=== PATIENT | female | born 1945 | race Caucasian/White ===

== ENCOUNTER 2016-06-21 08:58 | Inpatient (IN) ==
[2016-06-21 09:48] LABS: MANUAL DIFF NEEDED? NO
[2016-06-21 09:51] LABS: BASO% 0.8 % (0.0-0.8); EOS# 0.39 X1000 (0.0-0.7); EOS% 3.3 % (0.0-10.0); HEMATOCRIT 39.5 % (37.0-47.0); HEMOGLOBIN 12.7 g/dL (12.0-16.0); IMM GRAN# 0.24 X1000 (0.0-0.04); LYMPH# 2.01 X1000 (1.2-3.4); LYMPH% 17.1 % (20.5-51.1); MCH 30.1 PG (27-31); MCHC 32.2 g/dL (33-37); MCV 93.6 FL (81-99); MONO# 1.15 X1000 (0.11-0.59); MONO% 9.8 % (1.7-9.3); MPV 9.6 FL (7.4-10.4); PLT 273 X1000 (130-400); RBC 4.22 XMIL (4.2-5.4)
--- NOTE | 2016-06-21 10:07 | EKG Report ---
Test Performed on : 06/21/2016 09:42:06 AM Test Reason : emboli Blood Pressure : / mmHG Vent. Rate : 084 BPM Atrial Rate : 084 BPM P-R Int : 192 ms QRS Dur : 086 ms QT Int : 366 ms P-R-T Axes : 078 -03 070 degrees QTc Int : 432 ms Normal sinus rhythm. Nonspecific ST abnormality Abnormal ECG When compared with ECG of 21-JUN-2016 09:41, (Unconfirmed) No significant change was found Unconfirmed Result
[2016-06-21 10:08] LABS: ALBUMIN 3.5 g/dL (3.5-5.0); CALCIUM 8.9 mg/dL (8.8-10.2); POTASSIUM 4.3 mmol/L (3.5-5.1); TOTAL BILIRUBIN 0.2 mg/dL (0.20-1.00); TOTAL PROTEIN 6.4 g/dL (6.3-8.3)
--- NOTE | 2016-06-21 11:43 | Diag Imaging Result Document ---
PROCEDURE NAME: HEAD W/O CONTRAST - 06/21/2016 CT HEAD WITHOUT CONTRAST: A dose-reduction protocol was used. COMPARISON: No comparison exam. FINDINGS: There is no evidence of intracranial hemorrhage, mass effect, midline shift, or hydrocephalus. There is no evidence of infarct, although acute infarcts may not be immediately visible. There is no skull fracture. There is mild paranasal sinus disease noted of ethmoid and sphenoid sinuses. IMPRESSION: No visible acute intracranial abnormality. No evidence of intracranial injury. There is mild paranasal sinus disease noted.
--- NOTE | 2016-06-21 11:47 | Diag Imaging Result Document ---
PROCEDURE NAME: WRIST COMPLETE LEFT - 06/21/2016 LEFT WRIST, 3 VIEWS: FINDINGS: There is a questionable nondisplaced fracture at the dorsal aspect of the distal radial metaphysis. There is no other fracture or dislocation identified. IMPRESSION: Questionable nondisplaced fracture of the distal radius.
[2016-06-21 11:59] LABS: BILIRUBIN URINE 2+ (NEGATIVE); BLOOD URINE NEGATIVE (NEGATIVE); CLARITY CLEAR (CLEAR); COLOR AMBER; GLUCOSE URINE NEGATIVE (NEGATIVE); LEUKOCYTES URINE 2+ (NEGATIVE); NITRITE URINE POSITIVE (NEGATIVE); PH URINE 6.5; PROTEIN URINE 1+(30 mg/dL) mg/dL (NEGATIVE); UROBILINOGEN URINE 1+(1 mg/dL)
[2016-06-21 12:20] LABS: URINE CULTURE PL NEEDED? YES; URINE EPITHELIAL CELLS >10 /HPF (<10); URINE RBC <10 /HPF (<10); URINE SOURCE CLEAN CATCH; URINE WBC 20-40 /HPF (<10)
[2016-06-21] MEDS ORDERED: NS 1,000 ML IV ONE (12:21)
[2016-06-21] MEDS ORDERED: DOPAMINE 800 MG/D5W (PARKWAY ONLY!) 800 MG/250 ML IV.SOLN IV SCH (12:30)
[2016-06-21] MEDS: ROCEPHIN 1 GM/NS 1 GM/50 ML IVPB IV SCH (12:53)
[2016-06-21] MEDS ORDERED: NORCO-5 PO ONE (13:05)
[2016-06-21] MEDS ORDERED: DEMEROL IV ONE (14:19)
--- NOTE | 2016-06-21 15:32 | HISTORY AND PHYSICAL ---
PRIMARY CARE PHYSICIAN: Dr. Kern . CHIEF COMPLAINT: Have a fall outside. Stated that she had been walking her dog , got dizzy, lost balance and fell. HISTORY OF PRESENTING ILLNESS: This is a 71-year-old female who presents to [facility] ER stating that she had a fall outside her home today while she was walking her dog, states she got dizzy, lost her balance and fell hitting her left temporal area on a brick noted to be raised and dark black bruising noted. Also states that she fell onto her left wrist and left knee. When she arrived to the emergency room she was noted to have a blood pressure of 85/72. When they tried to do orthostatics once she got to the standing part it dropped all the way to 43/35. She was given a liter bolus of normal saline and her pressure is now up to 120/62. Wrist x-ray of her left wrist showed a questionable nondisplaced fracture of the distal radius. So she also states that yesterday she was in her home and was walking inside her house, got dizzy and fell. Both incidences she states she never lost consciousness so she is being admitted for further evaluation and treatment. PAST MEDICAL HISTORY: Coronary artery disease, hypertension, COPD and diabetes type 2. PAST SURGICAL HISTORY: Appendectomy, a carotid endarterectomy, cholecystectomy and a hysterectomy. FAMILY HISTORY: Noncontributory. SOCIAL HISTORY: She currently lives alone. States she quit smoking approximately 4 months ago. Smoked a pack and a half a day for the past 60 years up until 4 months ago. Denies any alcohol or illicit drug use. ALLERGIES: She has no known drug allergies. HOME MEDICATIONS: We will obtain a current list of her home medications and she states she is on multiple antihypertensive, course those will be held at this time but we will verify those and restart what is appropriate to restart at this time. LABORATORY DATA: Showed a white blood cell count of 11.74, hemoglobin 12.7, hematocrit 39.5, platelets 273,000. Sodium of 136, potassium 4.3, chloride 98, CO2 24, BUN of 18, creatinine 1, glucose 162, creatine kinase of 25 with a troponin of less than 0.010. Urinalysis showed positive nitrites, 2+ white blood cells and 4+ bacteria. Head CT showed no visible acute intracranial abnormality. No evidence of an intracranial injury. EKG showed normal sinus rhythm at 84. REVIEW OF SYSTEMS: She denied any fever, chills, blurred vision. She was positive for some dizziness. She denied any chest pain, coughing, shortness of breath, abdominal pain, constipation, diarrhea, burning or hurting with urination. She is positive for left wrist pain with movement. PHYSICAL EXAMINATION: VITAL SIGNS: On arrival she had a temperature of 97.2 degrees, pulse 88, respirations 22, blood pressure was 85/72, saturating 96% on room air. They obtained orthostatics, lying was 77/52, sitting was 85/62 and standing was 43/35. Currently she is at 120/62. GENERAL: This is a 71-year-old morbidly obese female who is lying in the bed, answers all questions appropriately. HEENT: Normocephalic and atraumatic. Pupils are equal, round, reactive to light. The patient is noted to have her left temporal area has a knot that is raised and dark black in color from where she states she hit her head on the brick outside when she fell. Pupils are equal, round, reactive to light. Extraocular movements are intact. Oropharynx and nares are clear. NECK: Supple. LUNGS: Clear to auscultation bilaterally with equal lung expansion and chest wall movement. HEART: With regular rate and rhythm. No murmurs, rubs, or gallops. ABDOMEN: Soft, nontender, nondistended. Bowel sounds are present x4 quadrants. EXTREMITIES: There is no clubbing, cyanosis, or edema. The patient is noted to have a left wrist immobilizer in place. NEUROLOGICAL: The cranial nerves 2-12 appear grossly intact. ASSESSMENT: 1. Fall. 2. Syncope. 3. Urinary tract infection. 4. Hypotension. 5. A left wrist fracture. PLAN: Initially we were thinking she would go to ICU but her fluid resuscitation has improved her blood pressure so she can now come to the medical floor. We will place her on telemetry, bedrest with bedside commode privileges, give her Demerol 25 mg IV q.4 hours p.r.n., normal saline at 100 mL an hour. Will continue her Rocephin 1 gram IV q.24. Urine culture is pending. We will recheck a CBC, CMP in the a.m. We will verify her home medications and of course hold any antihypertensives at this time. The patient does not have a living will at this time and is a full code. Dictated by ANTONELLA Toscano for Konrad Atkins MD cc: MD Konrad Wesley MD pt examined, unclear why pt is so orthostatic although may be related to her numerous medications; gabi adjust accordingly and follow closely will continue hydration and monitor for any volume overload APENOT MTDD
[2016-06-21] MEDS ORDERED: DEMEROL IV PRN (15:57)
[2016-06-21] MEDS ORDERED: NS 500 ML IV ONE (15:58)
[2016-06-21] MEDS: NS 1,000 ML IV SCH (16:34)
[2016-06-21] MEDS: HUMULIN R (PARKWAY) SUBQ SCH ×2 (17:24→21:14)
[2016-06-21] MEDS: ZOFRAN IV PRN (21:00)
[2016-06-21] MEDS: DILAUDID IV PRN (23:00)
[2016-06-22] MEDS: DILAUDID IV PRN ×4 (03:12→20:06)
[2016-06-22] MEDS: NS 1,000 ML IV SCH ×3 (03:12→22:03)
[2016-06-22 05:23] LABS: MANUAL DIFF NEEDED? NO
[2016-06-22 05:38] LABS: BASO% 0.2 % (0.0-0.8); EOS# 0.25 X1000 (0.0-0.7); HEMATOCRIT 39.8 % (37.0-47.0); HEMOGLOBIN 12.5 g/dL (12.0-16.0); IMM GRAN# 0.09 X1000 (0.0-0.04); IMM GRAN% 1.1 % (0.0-0.5); LYMPH# 1.85 X1000 (1.2-3.4); LYMPH% 22.3 % (20.5-51.1); MCH 29.8 PG (27-31); MCHC 31.4 g/dL (33-37); MCV 94.8 FL (81-99); MONO# 0.87 X1000 (0.11-0.59); MONO% 10.5 % (1.7-9.3); MPV 9.6 FL (7.4-10.4); NEUT% 62.9 % (42.2-75.2); PLT 232 X1000 (130-400)
[2016-06-22 06:01] LABS: HEMOGLOBIN A1C 6.4 % (4.8-6.0)
[2016-06-22 06:05] LABS: AGAP 13; ALBUMIN 3.4 g/dL (3.5-5.0); ALKALINE PHOSPHATASE 105 U/L (32-104); BUN 11 mg/dL (8-22); CALCIUM 8.7 mg/dL (8.8-10.2); CHLORIDE 100 mmol/L (98-107); COSMO 278; GOT 10 U/L (10-30); GPT 12 U/L (10-36); MAGNESIUM 1.9 mg/dL (1.5-2.7); POTASSIUM 4.4 mmol/L (3.5-5.1); SODIUM 138 mmol/L (136-145); TCO2 25 mmol/L (25-35); TOTAL PROTEIN 6.3 g/dL (6.3-8.3)
[2016-06-22] MEDS: HUMULIN R (PARKWAY) SUBQ SCH ×4 (06:38→22:03)
[2016-06-22] MEDS ORDERED: NITROGLYCERIN SL PRN (11:46)
[2016-06-22] MEDS ORDERED: NORCO-5 PO PRN (11:46)
[2016-06-22] MEDS ORDERED: MIRALAX PO PRN (11:46)
[2016-06-22] MEDS: GLUCOPHAGE PO SCH ×2 (12:05→17:05)
[2016-06-22] MEDS: ROCEPHIN 1 GM/NS 1 GM/50 ML IVPB IV SCH (12:06)
[2016-06-22] MEDS: CARDIZEM CD PO SCH (12:16)
[2016-06-22] MEDS: NEURONTIN PO SCH ×2 (12:16→17:05)
--- NOTE | 2016-06-22 15:40 | PROGRESS NOTE ---
DATE: 06/22/2016 SUBJECTIVE: Patient does not feel good today. She just feels worse than she did yesterday. OBJECTIVE: Vital signs: Blood pressure 118/84, heart rate 94, respiratory 18, temperature 98.4 degrees. Her orthostatics have improved somewhat, heart rate maintained in the 90s, supine blood pressure 101 systolic up to 117 when she was standing, 97% on room air. Cardiovascular: Regular rate and rhythm. Pulmonary: Bilateral breath sounds. Clear to auscultation. GI: Soft, nontender, nondistended. Bowel sounds are positive. Extremities: No clubbing or cyanosis. Lymphatics: No peripheral edema. LABORATORY DATA: Unremarkable. A1c is only 6.4. PROBLEM LIST: 1. Orthostatic hypotension that is resolving. I am changing her medications around a little bit so she has some improvement in her medications. Going to cut down her Cardizem and her Imdur and follow clinically. 2. Urinary tract infection still waiting on urine culture. Rocephin is on board. 3. Diabetes appears to be well controlled. Continue to follow. DISPOSITION: Plan discharge tomorrow if she stabilizes. cc: Konrad Atkins MD
[2016-06-22] MEDS: ZOFRAN IV PRN (17:05)
[2016-06-22] MEDS: NORCO-7.5 PO PRN (17:05)
[2016-06-22] MEDS: RANEXA PO SCH (20:07)
[2016-06-22] MEDS ORDERED: LIPITOR PO SCH (21:00)
[2016-06-22] MEDS ORDERED: ROBITUSSIN-AC PO PRN (22:07)
[2016-06-22] MEDS: DUONEB (A & A) INH SCH (22:40)
[2016-06-23] MEDS: NS 1,000 ML IV SCH (02:04)
[2016-06-23] MEDS: DUONEB (A & A) INH SCH ×2 (04:09→11:08)
[2016-06-23 06:07] LABS: HEMATOCRIT 38.9 % (37.0-47.0); HEMOGLOBIN 12.1 g/dL (12.0-16.0); MCH 29.7 PG (27-31); MCHC 31.1 g/dL (33-37); MCV 95.6 FL (81-99); RBC 4.07 XMIL (4.2-5.4)
[2016-06-23] MEDS: HUMULIN R (PARKWAY) SUBQ SCH ×2 (06:23→11:52)
[2016-06-23 06:28] LABS: AGAP 10; BUN 14 mg/dL (8-22); CALCIUM 8.5 mg/dL (8.8-10.2); CHLORIDE 104 mmol/L (98-107); COSMO 278; POTASSIUM 4.5 mmol/L (3.5-5.1); SODIUM 137 mmol/L (136-145); TCO2 23 mmol/L (25-35)
[2016-06-23] MEDS: NEURONTIN PO SCH (09:07)
[2016-06-23] MEDS: NORCO-7.5 PO PRN ×2 (09:08→12:01)
[2016-06-23] MEDS: GLUCOPHAGE PO SCH ×2 (09:08→12:01)
[2016-06-23] MEDS: RANEXA PO SCH (09:08)
[2016-06-23] MEDS: CARDIZEM CD PO SCH (09:09)
--- NOTE | 2016-06-23 09:29 | Diag Imaging Result Document ---
PROCEDURE NAME: CHEST-2 VIEWS - 06/23/2016 FRONTAL AND LATERAL CHEST, TWO VIEWS: COMPARISON: 06/14/2016. FINDINGS: The lungs are well expanded. The heart is not enlarged. Mild vascular distention. No pleural effusions. There is atelectasis versus a small infiltrate in the left base. IMPRESSION: Mild interval worsening.
[2016-06-23 11:10] VITALS: BP 119/62
[2016-06-23] MEDS ORDERED: OMNICEF PO SCH (21:00)
--- NOTE | 2016-06-23 23:26 | DISCHARGE SUMMARY ---
ADMISSION DATE: 06/21/2016 DISCHARGE DATE: 06/23/2016 DIAGNOSES: 1. Fall. 2. Syncope, most likely related to orthostatic hypotension, secondary to medications. 3. Orthostatic hypotension, secondary to medications. 4. Diabetes mellitus. 5. Left wrist fracture. 6. History of chronic obstructive pulmonary disease. DIAGNOSTICS: On 06/21/2016, CT of the head revealed no visible acute intracranial abnormality. No evidence of intracranial injury. There is mild paranasal sinus disease noted. On 06/21/2016, wrist x-ray reveals a questionable nondisplaced fracture of the distal radius. On 06/23/2016, chest x-ray, lungs are well-expanding. Heart is not enlarged. Mild vascular distention. No pleural effusions. Atelectasis versus a small infiltrate in the left base. HOSPITAL COURSE: Ms. Alvarez presented to the emergency room, falling outside of her home today. She stated she was walking her dog, got dizzy, lost her balance, fell and hit her left temporal area on a brick. She also complained of pain to her left wrist and left knee. She is noted to have a blood pressure of 85/72 on arriving. On initial orthostatics, blood pressure did drop to 43/35. Pressures did increase after a liter of saline bolus. We did change medications, decreasing her Cardizem, her Imdur, and holding her Lasix, and blood pressures have increased, being 118-140 over 70s to 80s over the last 24 hours, with heart rates in the 80s and 90s. Orthostatics this morning were negative, with pressures 119/56, with a heart rate of 90 standing, and lying 119/62, with a heart rate of 88. She has denied any further dizziness or syncopal episodes. There was a question of a urinary tract infection, for which she was started on Rocephin. Cultures returned mixed av. She was found to have atelectasis on her chest x-ray, although she has denied any respiratory complaints. She was found to have a questionable distal radius fracture on the left. A wrist splint was applied in the emergency room. She does have positive PMS this morning. DISCHARGE PHYSICAL EXAMINATION: Cardiovascular: Regular rate and rhythm. S1 and S2 are appreciated. Pulmonary: Breath sounds are clear, with no increased work of breathing noted. Gastrointestinal: Abdomen is soft, nontender, nondistended, with bowel sounds in all 4 quadrants. Extremities: No clubbing, cyanosis, or edema. Splint is intact to left arm, with positive PMS to 5 fingers. Neurologic: She is alert and oriented x3. Cranial nerves 2-12 grossly intact. LABORATORY STUDIES: WBC is 8, with a hemoglobin of 12.1, hematocrit 38.9, and platelets of 203,000. Sodium is 137, potassium 4.5, BUN 14, creatinine 0.6, with a glucose of 143-160. DISCHARGE VITAL SIGNS: Blood pressure is 123/80, with a heart rate of 88. Respirations are 20. Oxygen saturation is 97% on room air. DISCHARGE MEDICATIONS: 1. Ranexa 1000 mg p.o. b.i.d. 2. Lipitor 20 at bedtime. 3. Lasix 40 p.r.n. as instructed prehospitalization. 4. Gabapentin 800 mg p.o. t.i.d. 5. Glucophage 500 p.o. t.i.d. 6. Imdur 30 mg p.o. daily. 7. Cardizem CD 240 mg daily. 8. Omnicef 300 mg p.o. b.i.d. FOLLOWUP: She is to follow up with her primary care physician, Dr. Kern, in 1 week, and with Dr. Pineda in orthopedics in 1-2 weeks to evaluate the left distal radius fracture. She is to wear her splint at all times until seen by Dr. Pineda. She has been instructed to call Dr. Pineda to be seen sooner for any change in sensation to her left arm, swelling, pain, change in warmth, or any questions or concerns that she may have. She is being discharged home in stable condition with family members. TIME SPENT: This is a greater than 30 minute discharge. Dictated by ANTONELLA Ureña for Konrad Atkins MD cc: ANTONELLA Ureña MD
--- NOTE | 2016-07-01 02:23 | PROVIDER DOCUMENTATION ---
This chart was entered by Anna Wong, acting as scribe for Curt Rocha MD. HPI-Syncope/Dizziness - General Chief Complaint: Fall Stated Complaint: FALL/EXTREMITY INJURY Time Seen by Provider: 06/21/16 09:25 Source: patient, family Allergies/Adverse Reactions: Patient Allergies Allergy/AdvReac Type Severity Reaction Status Date / Time No Known Allergies Allergy Verified 06/14/16 00:04 Home Medications: Home Medication List Medication Instructions Recorded Confirmed Last Taken Type Atorvastatin Calcium [Lipitor] 20 mg PO HS 05/21/13 06/21/16 06/20/16 History Metformin [Glucophage] 500 mg PO TID 05/21/13 06/21/16 06/21/16 History Nitroglycerin S.l. [Nitroglycerin] 0.3 mg SL PRN PRN 05/21/13 06/21/16 08/06/13 08:00 History Polyethylene Glycol 3350 [Miralax] 510 gm PO 2-4XDAY PRN PRN #17 g 06/03/1406/17/16 Rx Furosemide [Lasix] 40 mg PO DAILY PRN PRN 06/21/16 06/21/16 06/11/16 History Gabapentin [Neurontin] 800 mg PO TID 06/21/16 06/21/16 06/21/16 History Ranolazine [Ranexa] 1,000 mg PO BID 06/21/16 06/21/16 06/20/16 History Diltiazem C.d. [Cardizem Cd] 240 mg PO DAILY #30 capsule 06/22/16 Unknown Rx Isosorbide Mononitrate E.r. [Imdur] 30 mg PO DAILY #30 06/22/16 06/21/16 Rx CefDINIR [Omnicef] 300 mg PO BID #10 capsule 06/23/16 Unknown Rx - History of Present Illness-Syncope/Dizzy Nature of Presenting Problem: pt is a 71 year old female present to the Er after a fall outside her home. Pt states she was taking the little dog outside and got dizzy and lost her balance and fell down. Pt denies losing consciousness. Pt states she has been getting dizzy all week and also fell inside her home yesterday. Pt states she fell mainly on her left side hit her left wrist, left side of head, and her left knee on the ground. Pt takes plavix, cardizem, Renexa, Pt denies shoulder pain and neck pain. Prior Episodes: reports: other (Today and yesterday) Onset/Duration: reports: this morning Timing: reports: still present Position/Activity at time of episode: reports: standing Symptoms prior to episode: denies: headache, lightheaded, visual disturbance, nausea/vomiting, chest pain, racing heart, abdominal pain, back pain, confusion , diaphoresis, injury, recent head trauma, rapid heart beat Context: denies: lost consciousness, became unresponsive, almost passed out, breathing stopped, low blood sugar Loss of Consciousness: no loss of consciousness Location of injury. (If syncope resulted in an injury.): reports: head (left side of head, left wrist, left knee) Current Symptoms: reports: dizzy. denies: chest pain, short of breath, shoulder pain, headache, blurred vision, lightheaded Recently Seen Here or By Another Healthcare Provider: No - Dizziness Severity in ED: reports: moderate Dizziness Related Current/Associated Symptoms: reports: dizzy, other (loss of balance) Any recent trauma/injury?: reports: none Modifying Factors: improves with: standing position Patient usually:: reports: walks without assistance Review of Systems - Adult - REVIEW OF SYSTEMS - ADULT Constitutional: denies: chills, fever, fatique Eyes: reports: no symptoms reported Ears, Nose, Mouth & Throat: reports: no symptoms reported Cardiovascular: denies: chest pain, edema, heart murmur, irregular heart rate Respiratory: reports: no symptoms reported Gastrointestinal: reports: no symptoms reported Genitourinary: reports: no symptoms reported Musculoskeletal: reports: other (Left wrist pain). denies: bone pain, back pain Integumentary: denies: itching, mole changes, nail changes Neurological: reports: dizziness/vertigo, loss of balance, other (Fall). denies : paresthesia, seizure Psychiatric: reports: no symptoms reported Endocrine: reports: no symptoms reported Hematologic/Lymphatic: reports: no symptoms reported Allergic/Immunologic: reports: no symptoms reported All Other Systems: Reviewed and Negative Past History - Adult - PAST MEDICAL HISTORY-ADULT Review of Records: reports: Old Records Reviewed, Nursing Assessment Review Major Childhood Illnesses: reports: denies history Cardiovascular: reports: CAD, HTN Respiratory: reports: COPD Gastrointestinal: reports: denies history Obstetrical/Gynecological: reports: denies history Genitourinary: reports: denies history Musculoskeletal: reports: chronic pain Neurological: reports: denies history Psychiatric: reports: denies history Endocrine/Immune: reports: Diabetes Other Conditions: reports: denies history - PRIOR SURGERIES/PROCEDURES Surgical/Procedure History: reports: appendectomy, colonoscopy, cholecystectomy , hysterectomy - PRIOR HOSPITALIZATIONS Prior Hospitalizations: reports: none - IMMUNIZATION STATUS Childhood Immunizations: See Nurse Assessment Flu Vaccine: See Nurse Assessment - FAMILY HISTORY Family History: reviewed, not pertinent Physical Exam-General - PHYSICAL EXAM-ADULT Initial Vital Signs Reviewed: Yes - CONSTITUTIONAL General Appearance: appears well, alert, no apparent distress - EYES Eyes: PERRL/EOMI - HEAD, EARS, NOSE, MOUTH & THROAT HENMT: moist mucous membranes, normal ENT inspection, TMs normal, pharynx normal - NECK Neck: non-tender, full range of motion, other (carotid endarterectomy) - RESPIRATORY Respiratory: chest non-tender, lungs clear, normal breath sounds - CARDIOVASCULAR Cardiovascular: normal peripheral pulses, regular rate, rhythm, no edema, no gallop, no JVD, no murmur - GASTROINTESTINAL (ABDOMEN) Abdominal Exam: normal bowel sounds, non tender, soft - LYMPHATIC Lymphatic: no adenopathy - MUSCULOSKELETAL Back Exam: normal inspection, no CVA tenderness Extremity: normal range of motion, non-tender, normal gait, normal inspection, no pedal edema, no calf tenderness, normal capillary refill - SKIN Integumentary: normal color, normal turgor, warm/dry, other (Scratch below left knee) - NEUROLOGIC Neurologic: epic prelude analyst II-XII nml as tested, grossly normal - PSYCHIATRIC Psych/Mental Status: normal mood/affect, normal thought content, normal thought process, oriented x 3 Progress - PLAN OF CARE/RESULTS Progress/Plan/Lab Results: Orders Category Date Time Status Admit - [facility] Routine AdmDCTranf 06/21/16 15:57 Ordered Activity - Bedrest with BSC ORDERED Care 06/21/16 15:57 Completed Intake and Output-Strict ORDERED Care 06/21/16 15:57 Active Vital Signs Order Q 8-HR ASSESS Care 06/21/16 15:57 Active HEAD W/O CONTRAST [CT] Stat Exams 06/21/16 10:28 Completed WRIST COMPLETE LEFT [RAD] Stat Exams 06/21/16 10:43 Completed CBC WITH DIFF [HEME] Routine Lab 06/22/16 05:00 Completed CBC WITH DIFF [HEME] Stat Lab 06/21/16 09:35 Completed CK PROFILE [SP CHEM] Stat Lab 06/21/16 09:35 Completed CK PROFILE [SP CHEM] Urgent Lab 06/21/16 16:15 Completed COMPREHENSIVE METABOLIC PANEL [CHEM] Routine Lab 06/22/16 05:00 Completed COMPREHENSIVE METABOLIC PANEL [CHEM] Stat Lab 06/21/16 09:35 Completed TROPONIN T Stat Lab 06/21/16 09:35 Completed TROPONIN T Urgent Lab 06/21/16 16:[address] W/POSS RFLX CULT [URINALYSIS] Stat Lab 06/21/16 11:45 Completed URINE CULTURE [RM] Routine Lab 06/21/16 12:20 Completed 0.9% Sodium Chloride Inj [Ns] 1,000 ml Med 06/21/16 15:57 Discontinued IV 100 mls/hr 0.9% Sodium Chloride Inj [Ns] 1,000 ml Med 06/21/16 12:21 Discontinued IV 999 mls/hr CefTRIAXONE 1 GM/NS [Rocephin 1 gm/Ns] Med 06/21/16 12:30 Discontinued 1 gm in 50 ml IV Q24H Dopamine 800 mg/D5w ([place]) [Dopamine 800 mg/D5w ( Med 06/21/16 12:30 Discontinued [place] Only!)] 800 mg in 250 ml IV As Directed Hydrocodone/APAP 5 mg/325 mg [[place]-5] Med 06/21/16 13:05 Discontinued 1 each PO NOW ONE Meperidine [Demerol] Med 06/21/16 14:19 Discontinued 25 mg IV NOW ONE Meperidine [Demerol] Med 06/21/16 15:57 Discontinued 25 mg IV Q4H PRN PRN Ondansetron [Zofran] Med 06/21/16 15:57 Discontinued 4 mg IV Q4H PRN PRN Telemetry [OM.EQ] Routine Oth 06/21/16 15:57 Active EKG [EKG] Routine Ther 06/21/16 09:37 Draft Transfer/Admit Order [TRANSFER] Routine Transfer 06/21/16 12:22 Completed Result Diagrams: 06/23/16 05:15 06/23/16 05:15 - EKG 1 Time of EKG reading by physician:: 09:42 EKG Read and Signed by:: Curt Rocha EKG Interpretation (*Must complete 3 of following elements*): Abnormal (normal sinus rhythm nonspecific ST abnormality, abnormal ECG) Rate: 84 Rhythm: normal sinus rhythm [place]: normal QRS: normal [place] Interval: normal Departure - Departure Time of Disposition Decision: 15:50 DIAGNOSIS: Fall Qualifiers: Encounter type: initial encounter Qualified Code(s): W19.XXXA - Unspecified fall, initial encounter Syncope Qualifiers: Syncope type: unspecified Qualified Code(s): R55 - Syncope and collapse Hypotension Qualifiers: Hypotension type: unspecified hypotension type Qualified Code(s): I95.9 - Hypotension, unspecified UTI (urinary tract infection) Qualifiers: Urinary tract infection type: acute cystitis Hematuria presence: without hematuria Qualified Code(s): N30.00 - Acute cystitis without hematuria Left wrist fracture Qualifiers: Encounter type: initial encounter Fracture type: closed Qualified Code(s): S62.102A - Fracture of unspecified carpal bone, left wrist, initial encounter for closed fracture Disposition: ADMITTED INPATIENT 09 Certified Medical Emergency: Emergent Condition: Stable - Critical Care Note This patient required my direct & personal management of CC.: No This chart was documented by the indicated scribe, (Anna Wong) and accurately reflects the services I performed and decisions made by me, Curt Rocha MD, as attested by the provider's signature.
== END 2016-06-23 14:10 | disposition home or self-care (01) ==
LOC: P.ED 08:58 → P.MEDSURG 15:20
PROVIDERS: ATTEND Internal Medicine